=== PATIENT | female | born 1990 | race Caucasian/White ===

== ENCOUNTER 2017-04-14 20:41 | Emergency (ER) | payer OTHER, SELFPAY ==
[2017-04-14 20:48] VITALS: BP 124/112; PULSE 110; RESP 18; TEMP 36.9; O2SAT 98; BMI 29.2
--- NOTE | 2017-04-14 21:04 | CT_ITS ---
CT abdomen pelvis wo con CLINICAL INDICATION: Nausea and abdominal pain, lower abdominal pain ITS.REASON: abdominal pain ORDERING PHYSICIAN: Fortunato García MD PATIENT AGE: 26 years COMPARISON: None TECHNIQUE: Axial images obtained with sagittal and coronal reformats. PROCEDURE: Oral Contrast: None IV Contrast: None . FINDINGS: Lung bases are clear. The liver, spleen, adrenal glands, pancreas, gallbladder, kidneys, urinary bladder and ureters have an unremarkable unenhanced CT appearance. No intestinal obstruction or free air. No focal inflammatory change. The appendix is upper normal in caliber but there is no stranding of the periappendiceal fat. If symptoms persists, consider follow-up with IV contrast. No evidence of diverticulitis. No pelvic mass or focal inflammatory change. There are small amount fluid in the cul-de-sac. No acute bony findings. IMPRESSION: 1. No definite acute abdominal or pelvic findings. 2. The appendix is upper normal in size but no evidence of appendicitis. If symptoms warrant, repeat exam with IV contrast may be of further value. 3. Small amount fluid in the pelvis nonspecific
--- NOTE | 2017-04-14 21:09 | HMH.EDUROGF ---
ED Disposition Clinical Impression: Pelvic pain Disposition: Home, Self-Care Condition on Discharge: Good Instructions: DI for Pelvic Pain Additional Instructions: call dr infante in am - Critical Care Critical Care Time: No Attestation: On 04/14/17, the high probability of a clinically significant, sudden or life threatening deterioration of the following system(s) required my full and direct attention, intervention and personal management. The time I documented below is in addition to time spent performing reported procedures but includes the following listed in this critical care notation. Medical Decision Making - Medical Records Medical records reviewed: Yes: I reviewed the patient's medical records. Vital Signs: 04/14/17 20:48 Temperature 98.5 F Temperature Source Oral Pulse Rate [Right Radial] 110 H Respiratory Rate 18 Blood Pressure [Right Arm] 124/112 Blood Pressure Mean [Right Arm] 116 02 Sat by Pulse Oximetry 98 Oxygen Delivery Method Room Air - Lab Data Lab results reviewed: Yes: I reviewed the patient's lab results. Lab Results 04/14/17 21:10: WBC 12.6 H, RBC 4.69, Hgb 14.0, Hct 41.9, MCV 89.4, MCH 29.8, MCHC 33.4, RDW 13.0, Plt Count 395, MPV 8.0, Neut % (Auto) 63.9, Lymph % (Auto) 26.8, [place] % (Auto) 6.7, Eos % (Auto) 2.1, Baso % (Auto) 0.6, Neut # (Auto) 8.0 H, Lymph # (Auto) 3.4, [place] # (Auto) 0.9, Eos # (Auto) 0.3, Baso # (Auto) 0.1 04/14/17 21:10: Urine HCG, Qual Negative 04/14/17 21:10: Sodium 141, Potassium 4.0, Chloride 103, Carbon Dioxide 28, Anion Gap 14.0, BUN 10, Creatinine 0.84, Estimated Creat Clear 122, Estimated GFR 83, Est GFR ( Amer) 101, Glucose 94, Calcium 8.9, Total Bilirubin 0.2, AST 27, ALT 58, Alkaline Phosphatase 136 H, Total Protein 8.6 H, Albumin 4.4, Globulin 4.2 H, Albumin/Globulin Ratio 1.0 L, Amylase 65, Lipase 234 Result diagrams: 04/14/17 21:10 04/14/17 21:10 Orders (Tests/Meds): ED MEDICATIONS Discontinued Medications Generic Name Dose Route Start Last Admin Trade Name [place] PRN Reason Stop Dose Admin Sodium Chloride 1,000 mls @ 999 mls/hr 04/14/17 21:00 04/14/17 21:45 Sod Chlor 0.9% 1000ml Bag IV 04/14/17 22:00 999 mls/hr .Q1H1M XU Administration Ketorolac Tromethamine 30 mg 04/14/17 21:38 04/14/17 21:44 Toradol 30mg/Ml Vial IV 04/14/17 21:39 30 mg ONCE ONE Administration Ondansetron HCl 4 mg 04/14/17 21:38 04/14/17 21:45 Zofran 4mg/2ml Vial IV 04/14/17 21:39 4 mg ONCE ONE Administration ORDERS Category Date Time Status CT abdomen pelvis wo con Stat Cat Scan 04/14/17 21:04 Taken - CT Data CT Scan: Abdomen, Pelvis Time Received: 22:[address] Reviewed: Yes: I have viewed the radiologist's interpretation Preliminary Findings: Normal/NAD - Puneet Inquiry Pt receiving controlled substance: No Female Urogenital HPI - General Chief complaint: Abdominal Pain Stated complaint: Has Implant; Pass Blood Clot Time Seen by Provider: 04/14/17 21:00 Mode of Arrival: Ambulatory Limitations: No Limitations Description of Symptoms (Recalled from ER Triage Doc. by RN): Pt reports she had a nexplanon inserted in her left arm on 03/23/20. pt. reports last abdmonial pain, nausea, and chills. Pt reports she she passed a large clot that looks like flesh. - History of Present Illness HPI Narrative: pelvic pain with abn vag bleeding and passed clot and tissue tonight Complaint: vaginal bleeding, pelvic pain Onset (ago): day(s) Location: suprapubic Severity: moderate Quality: sharp : no - Related Data Home Medications Medication Instructions Recorded Confirmed etonogestrel 68 mg subdermal 1 implant SUBDERMAL ONCE 03/23/17 04/14/17 implant Allergies Allergy/AdvReac Type Severity Reaction Status Date / Time No Known Allergies Allergy Verified 04/14/17 20:57 [facility] History I have reviewed the patient's past medical history: Yes Other Surgeries: Yes: No Previou
[2017-04-14 21:23] LABS: Urine Pregnancy, HCG Qual. Negative (Negative)
[2017-04-14 21:26] LABS: Basophils # 0.1 K/mm3 (0-0.2); Basophils % 0.6 % (0.1-2.0); Eosinophils # 0.3 K/mm3 (0.0-0.4); Eosinophils % 2.1 % (0.1-12.0); Hematocrit 41.9 % (37.0-47.0); Lymphocytes # 3.4 K/mm3 (0.7-4.5); Lymphocytes % 26.8 K/mm3 (10-50); Mean Corpuscular HGB Conc 33.4 g/dL (31.8-35.4); Mean Corpuscular Hemoglobin 29.8 pg (27.0-31.2); Mean Corpuscular Volume 89.4 fl (81-99); Monocytes # 0.9 K/mm3 (0.1-1.0); Monocytes % 6.7 % (1.7-9.3); Neutrophils % 63.9 % (37.0-80.0); Platelet Count 395 K/mm3 (142-424); Red Blood Count 4.69 M/mm3 (4.20-5.40); White Blood Count 12.6 K/mm3 (4.8-10.8)
[2017-04-14 21:33] LABS: Alanine Aminotransferase 58 U/L (12-78); Albumin Level 4.4 gm/dL (3.4-5.0); Alkaline Phosphatase 136 U/L (46-116); Amylase 65 U/L (25-125); Aspartate Amino Transferase 27 U/L (15-37); Bilirubin,Total 0.2 mg/dL (0.2-1.0); Blood Urea Nitrogen 10 mg/dL (7-18); Calcium 8.9 mg/dL (8.5-10.1); Carbon Dioxide 28 mmol/L (21.0-32.0); Chloride 103 mmol/L (98-107); Creatinine Clearance Estimated 122 mL/min (0-300); Creatinine,Serum 0.84 mg/dL (0.55-1.02); Estimated Glomerular Filt Rate 83 ml/min (>60); GFR (African American) 101 ML/MIN (>60); Globulin 4.2 gm/dl (1.3-3.2); Glucose 94 mg/dL (74-106); Lipase 234 u/L (73-393); Sodium 141 mmol/L (136-145); Total Protein,Serum 8.6 gm/dL (6.4-8.2)
--- NOTE | 2017-04-14 21:35 | PC.NURSE ---
At bedside with Liya Patel MS4 during pelvic exam
[2017-04-14 23:10] VITALS: BP 120/68; PULSE 72; RESP 18; TEMP 36.8; O2SAT 99
== END 2017-04-14 23:10 | disposition home or self-care (01) ==
PROVIDERS: Emergency Provider Emergency Medicine
DX: R10.2 Pelvic and perineal pain (principal)
CPT/HCPCS: 74176; 80053; 81025; 82150; 83690; 85025; 96365; 96374; 96375; 99283; J2405

== ENCOUNTER → 2017-08-23 15:38 | Outpatient (CLI) | payer OTHER, SELFPAY ==
[2017-08-25 09:23] LABS: HIV Screen 4th Generation wRfx Non Reactive (Non Reactive)
[2017-08-26 02:33] LABS: Hepatitis C Antibody <0.1 s/co ratio (0.0-0.9); Rapid Plasma Reagin Ab Titer Non Reactive (NonRea<1:1)
== END ==
PROVIDERS: Visit Provider Obstetrics & Gynecology
DX: Z11.3 Encounter for screening for infections with a predominantly sexual mode of transmission (principal)
CPT/HCPCS: 36415; 86592; 86703; 87380; G0432

== ENCOUNTER → 2018-11-15 14:25 | Outpatient (CLI) | payer OTHER, SELFPAY ==
[2018-11-15 14:52] LABS: Amphetamine/Metha Screen,Urine Negative ng/mL (<1000); Barbiturates Screen,Urine Negative ng/mL (<200); Benzodiazepines Screen,Urine Positive ng/mL (<200); Cannabinoid Screen,Urine Negative ng/mL (<50); Cocaine Screen,Urine Negative ng/mL (<300); Methadone Screen,Urine Negative ng/mL (<300); Opiate Screen,Urine Negative ng/mL (<300); Phencyclidine Screen,Urine Negative ng/mL (<25)
== END ==
PROVIDERS: Visit Provider Emergency Medicine
DX: N39.0 Urinary tract infection, site not specified (principal); F41.9 Anxiety disorder, unspecified
CPT/HCPCS: 80305; 87086

== ENCOUNTER 2019-12-27 19:44 | Emergency (ER) | payer OTHER, SELFPAY ==
[2019-12-27 19:44] VITALS: BP 129/89; PULSE 99; RESP 16; TEMP 37.4; O2SAT 100; BMI 28.3
--- NOTE | 2019-12-27 20:23 | HMH.EDUTC ---
[facility] [place] Clinical Impression: Exposure to COVID-19 virus, Viral syndrome Disposition: Home, Self-Care Condition on Discharge: Good Instructions: Preventing the Spread of Coronavirus Discharge Instructions Additional Instructions: Drink plenty of fluids. Take tylenol or ibuprofen for pain or fever. Take the medications as directed. Follow up with your regular doctor. GO TO THE ER FOR ANY WORSENING SYMPTOMS FOLLOW THE DIRECTIONS ON THE COVID-19 HAND OUT THAT WE GAVE YOU REGARDING SELF-ISOLATION UNTIL YOU KNOW YOUR COVID-19 RESULTS Prescriptions: Albuterol Sulfate [Albuterol Sulfate Hfa] 2 puffs IH Q6HP PRN 30 Days #1 hfa.aer.ad PRN Reason: Shortness Of Breath Transmission Status: Pending to [facility] Brompheniramine/Pseudoephed/Dm [Bromfed Dm Cough Syrup] 5 ml PO Q6HP PRN #240 syrup PRN Reason: Cough Transmission Status: Pending to [facility] Azithromycin [Z-Cole 250mg Tab*] 250 mg PO UD DOSE PK #6 tab Transmission Status: Pending to [facility] Referrals: Fortunato García MD [Primary Care Provider] - Forms: Work/School Release Time of Disposition: 20:34 Medical Decision Making - Medical Records Medical records reviewed: No: I reviewed the patient's medical records. - Puneet Inquiry Pt receiving controlled substance: No Vital Signs: 12/27/19 19:44 12/27/19 20:26 Temperature 99.3 F 99.0 F Temperature Source Oral Oral Pulse Rate [Left Radial] 99 H 103 H Respiratory Rate 16 14 Blood Pressure [Left Arm] 129/89 126/93 H Blood Pressure Mean [Left Arm] 102 104 Blood Pressure Source [Left Arm] Automatic Cuff Automatic Cuff Blood Pressure Position [Left Arm] Supine Sitting 02 Sat by Pulse Oximetry 100 100 Oxygen Delivery Method Room Air Room Air Orders (Tests/Meds): ORDERS Category Date Time Status Covid-19 Nasal PCR ([facility]) Routine Lab 12/27/19 20:23 Ordered [facility] [place]PI - General Stated complaint: Sore throat, Cough Time Seen by Provider: 12/27/19 20:23 Mode of Arrival: Ambulatory Source of Information: Patient Limitations: No Limitations Description of Symptoms (Recalled from Triage Doc. by RN): Pt decribes sore throat and subjective fevers for 3 days. - History of Present Illness Provider Complaint: She c/o 2 days of body aches, sore throat, runny nose and feeling bad. 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 - Related Data Home Medications Medication Instructions Recorded Confirmed etonogestrel 68 mg subdermal 1 implant SUBDERMAL ONCE 03/23/17 12/10/19 implant Previous Rx's Medication Instructions Recorded Albuterol Sulfate [Albuterol 2 puffs IH Q6HP PRN 30 Days #1 12/27/19 Sulfate Hfa] hfa.aer.ad Azithromycin [Z-Cole 250mg Tab*] 250 mg PO UD DOSE PK #6 tab 12/27/19 Brompheniramine/Pseudoephed/Dm 5 ml PO Q6HP PRN #240 syrup 12/27/19 [Bromfed Dm Cough Syrup] Allergies Allergy/AdvReac Type Severity Reaction Status Date / Time naloxone [From Suboxone] AdvReac Unknown N/V, Abd Verified 12/10/19 15:06 Pain, Dizzy, Itching [facility] History - Hepatitis A Screen Attestation statement:: This patient has been screened for Hepatitis A risk factors. I have reviewed the patient's past medical history: Yes Medical History: Reports:: Anxiety, Depression Denies:: Cancer, Chronic Obstructive Pulmonary Disease (COPD), Diabetes Mellitus Type 1, Diabetes Mellitus Type 2, Hypertension, MRSA Other Surgeries: Yes: No Previous Surgery Amputation: No Fractures: No - Social History Smoking Status: Never smoker Alcohol Intake: current Alcohol Intake Frequency:: holidays/special occasions only Substance Use Type: denies use Occupational Status: employed Housing: apartment Household Members: significant other - Psychiatric History Pschychiatric History:: Reports:: Anxiety, Depression Family Hx:: Diabetes, Coronary
[2019-12-27 20:26] VITALS: BP 126/93; PULSE 103; RESP 14; TEMP 37.2; O2SAT 100; BMI 28.3
[2019-12-27 20:43] VITALS: BP 126/93; PULSE 103; RESP 14; TEMP 37.2; O2SAT 100
== END 2019-12-27 20:44 | disposition home or self-care (01) ==
PROVIDERS: Emergency Provider Nurse Practitioner Family; PCP Emergency Medicine
DX: Z20.828 Contact with and (suspected) exposure to other viral communicable diseases (principal); B34.9 Viral infection, unspecified; F41.8 Other specified anxiety disorders
CPT/HCPCS: 99201; U0003

== ENCOUNTER 2020-08-03 20:36 | Emergency (ER) | payer OTHER, SELFPAY ==
[2020-08-03 20:39] VITALS: BP 131/98; PULSE 96; RESP 16; TEMP 36.6; O2SAT 100; BMI 32.8
[2020-08-03 20:57] LABS: Apearance,Urine Turbid (Clear); Color,Urine Dark Yellow (Yellow)
[2020-08-03 20:58] LABS: Bilirubin,Urine Negative (Negative); Blood, Urine Negative (Negative); Glucose,Urine (UA) Negative (Negative); Ketones,Urine Negative (Negative); Protein,Urine Negative (Negative); UTC Leukocyte Esterase,Urine 1+ (Negative); UTC Nitrate,Urine Negative (Negative); Urobilinogen,Urine 1 EU/dl (0.2)
--- NOTE | 2020-08-03 20:58 | HMH.EDUTC ---
[facility] [place] Disposition Clinical Impression: Dysuria, STD exposure Disposition: Home, Self-Care Condition on Discharge: Good Additional Instructions: Drink plenty of fluids. Take the azithromycin as directed (given here already). We will await the urine results before we treat further. Follow up with your pyrometer operator and your primary care doctor. GO TO THE ER FOR ANY WORSENING SYMPTOMS OR CONCERNS Prescriptions: Azithromycin 500 mg PO ONCE 1 Days #1 tab Transmission Status: [facility] [place] Referrals: Fortunato García MD [Primary Care Provider] - Time of Disposition: 21:01 Medical Decision Making - Medical Records Medical records reviewed: No: I reviewed the patient's medical records. - Puneet Inquiry Pt receiving controlled substance: No Vital Signs: 08/03/20 20:39 Temperature 97.9 F Temperature Source Oral Pulse Rate [Right] 96 H Respiratory Rate 16 Blood Pressure [Right Arm] 131/98 H Blood Pressure Mean [Right Arm] 109 Blood Pressure Source [Right Arm] Automatic Cuff Blood Pressure Position [Right Arm] Sitting 02 Sat by Pulse Oximetry 100 Oxygen Delivery Method Room Air - Lab Data Lab results reviewed: Yes: I reviewed the patient's lab results. Lab Results 08/03/20 20:56: Urine Color Dark yellow, Urine Appearance Turbid, Urine pH 7.0, Ur Specific [place] 1.020, Urine Protein Negative, Urine Glucose (UA) Negative, Urine Ketones Negative, Urine Blood Negative, Urine Nitrate Negative, Urine Bilirubin Negative, Urine Urobilinogen 1, Ur Leukocyte Esterase 1+ A Orders (Tests/Meds): ORDERS Category Date Time Status Urine Culture Stat Micro 08/03/20 21:00 Ordered [facility] HPI - General Stated complaint: pOSSIBLE uti Time Seen by Provider: 08/03/20 20:58 Mode of Arrival: Ambulatory Source of Information: Patient Limitations: No Limitations Description of Symptoms (Recalled from Triage Doc. by RN): pt c/o a yellow snotty vaginal d/c. pts boyfriend has been cheating and she thinks she may have an sti, bv or uti. HEENT Symptoms (Recalled from RN notes): No Resp Symptoms (Recalled from RN notes): No Skin Symptoms (Recalled from RN notes): No MS Symptoms (Recalled from RN notes): No Functional Status (Recalled from RN notes): na - History of Present Illness Provider Complaint: She states that for the past 1 week she has thought she has an std. She has been having whitish vaginal discharge. She is unsure about which std she may have been exposed to. - Related Data Home Medications Medication Instructions Recorded Confirmed etonogestrel 68 mg subdermal 1 implant SUBDERMAL ONCE 03/23/17 12/10/19 implant Previous Rx's Medication Instructions Recorded Albuterol Sulfate [Albuterol 2 puffs IH Q6HP PRN 30 Days #1 12/27/19 Sulfate Hfa] hfa.aer.ad Azithromycin [Z-Cole 250mg Tab*] 250 mg PO UD DOSE PK #6 tab 12/27/19 Brompheniramine/Pseudoephed/Dm 5 ml PO Q6HP PRN #240 syrup 12/27/19 [Bromfed Dm Cough Syrup] Allergies Allergy/AdvReac Type Severity Reaction Status Date / Time naloxone [From Suboxone] AdvReac Unknown N/V, Abd Verified 08/03/20 20:39 Pain, Dizzy, Itching - Worker's Comp Is this a Worker's Comp case?: No [facility] History - Hepatitis A Screen Drug use history?: No High risk sexual behaviors?: No History of sexually transmitted infection?: No Currently employed?: No Childcare worker?: No Do you have indoor plumbing?: Yes Do you have electricity?: Yes Attestation statement:: This patient has been screened for Hepatitis A risk factors. I have reviewed the patient's past medical history: Yes Medical History: Reports:: Anxiety, Depression Denies:: Cancer, Chronic Obstructive Pulmonary Disease (COPD), Diabetes Mellitus Type 1, Diabetes Mellitus Type 2, Hypertension, MRSA Other Surgeries: Yes: No Previous Surgery Amputation: No Fractures: No - Social History Smoking Status: Never smoker Alcohol Intake: never Alc
[2020-08-03 21:07] VITALS: BP 000/00; PULSE 0; RESP 0; TEMP -17.7; TEMP 0
[2020-08-05 18:34] LABS: Neisseria gonorrhoeae, NAA Negative (Negative)
== END 2020-08-03 21:17 | disposition home or self-care (01) ==
PROVIDERS: Emergency Provider Nurse Practitioner Family; PCP Emergency Medicine
DX: R30.0 Dysuria (principal); Z20.2 Contact with and (suspected) exposure to infections with a predominantly sexual mode of transmission; F41.8 Other specified anxiety disorders
CPT/HCPCS: 81003; 87086; 87491; 87591; 99202; G0463

== ENCOUNTER 2020-08-05 22:18 | Emergency (ER) | payer OTHER, SELFPAY ==
[2020-08-05 22:19] VITALS: BP 148/87; PULSE 98; RESP 20; TEMP 36.9; O2SAT 98; BMI 26.5
[2020-08-05 22:36] VITALS: BMI 26.5
[2020-08-05 22:42] LABS: Microscopic, Urine URINE MICROSCOPIC (MICROSCOPIC)
[2020-08-05 22:43] LABS: Appearance,Urine CLEAR (Clear); Bilirubin,Urine Negative (Negative); Blood, Urine Negative (Negative); Color,Urine YELLOW (Yellow); Glucose,Urine (UA) Negative (Negative); Ketones,Urine Negative (Negative); Leukocyte Esterase,Urine 3+ (Negative); Nitrate,Urine Negative (Negative); PH,Urine 7.5 (5.0-8.5); Protein,Urine Negative (Negative); Urobilinogen,Urine 0.2 EU/dl (0.2)
[2020-08-05 22:45] LABS: Urine Pregnancy, HCG Qual. Negative (Negative)
[2020-08-05 23:00] VITALS: BP 126/88; PULSE 101; O2SAT 98
[2020-08-05 23:01] LABS: Basophils # 0.1 K/mm3 (0-0.2); Basophils % 1.1 % (0.1-2.0); Eosinophils # 0.4 K/mm3 (0.0-0.4); Hematocrit 38.1 % (37.0-47.0); Hemoglobin 12.8 g/dL (12.2-16.2); Lymphocytes # 2.9 K/mm3 (0.7-4.5); Lymphocytes % 49.2 % (10-50); Mean Corpuscular HGB Conc 33.7 g/dL (31.8-35.4); Mean Corpuscular Hemoglobin 29.4 pg (27.0-31.2); Mean Corpuscular Volume 87.4 fl (81-99); Mean Platelet Volume 8.5 fl (7.4-10.4); Monocytes # 0.5 K/mm3 (0.1-1.0); Monocytes % 7.7 % (1.7-9.3); Neutrophils # 2.1 K/mm3 (1.8-7.8); Neutrophils % 34.9 % (37.0-80.0); Platelet Count 312 K/mm3 (142-424); Red Blood Count 4.36 M/mm3 (4.20-5.40); Red Cell Distribution Width 13.5 % (11.5-17.5)
[2020-08-05 23:04] LABS: Alanine Aminotransferase 38 U/L (12-78); Albumin Level 4.8 g/dl (3.5-5.0); Albumin/Globulin Ratio 1.5 (1.1-1.8); Alkaline Phosphatase 146 U/L (38-126); Amylase 82 U/L (30-110); Aspartate Amino Transferase 47 U/L (14-36); Bilirubin,Total 0.6 mg/dl (0.2-1.3); Blood Urea Nitrogen 10 mg/dl (7-17); Calcium 9.4 mg/dl (8.4-10.2); Carbon Dioxide 27 mmol/L (22.0-30.0); Chloride 104 mmol/L (98-107); Creatinine Clearance Estimated 151 mL/min (50-200); Estimated Glomerular Filt Rate 120 ml/min (>60); GFR (African American) 145 ML/MIN (>60); Globulin 3.1 g/dL (1.3-3.2); Glucose 93 mg/dl (74-100); Lipase 93 U/L (23-300); Sodium 138 mmol/L (136-145); Total Protein,Serum 7.9 g/dl (6.3-8.2)
--- NOTE | 2020-08-05 23:08 | CT_ITS ---
PROCEDURE INFORMATION: Exam: CT Abdomen And Pelvis With Contrast Exam date and time: 08/05/2020 11:08 PM Age: 29 years old Clinical indication: Abdominal pain; Patient HX: Epigastric mid line pain and nausea; Additional info: Abd pain TECHNIQUE: Imaging protocol: Computed tomography of the abdomen and pelvis with contrast. Radiation optimization: All CT scans at this facility use at least one of these dose optimization techniques: automated exposure control; mA and/or kV adjustment per patient size (includes targeted exams where dose is matched to clinical indication); or iterative reconstruction. Contrast material: ISOVUE; Contrast volume: 75 ml; Contrast route: IV; COMPARISON: ABDPELW CT abdomen pelvis w con 06/13/2018 10:20 PM FINDINGS: Lungs: The visualized lung bases are clear. Pleural spaces: There are no pleural effusions. Heart: The visualized portions of the heart are unremarkable. There is no evidence of pericardial fluid collections. Liver: There is diffuse decrease in hepatic parenchymal density consistent with fatty infiltration. Gallbladder and bile ducts: The gallbladder is incompletely distended, but as seen, appears within range of normal.There is common bile duct dilatation measuring approximately 11 mm in maximum distension. Pancreas: The pancreas is normal. Spleen: The spleen is normal. Adrenal glands: The adrenal glands are normal. Kidneys and ureters: There are a few small left renal hypodensities that cannot be further characterized on the current examination. Statistically, these are likely cysts. The kidneys are otherwise normal. Stomach and bowel: The stomach is included cleat distended, but as seen, appears within range of normal. The duodenum is unremarkable. There is mildly excessive colonic stool content, most prominent in the right colon which measures 6.4 cm in transverse dimension. Unopacified loops of small bowel within range of normal. Appendix: A normal appendix is identified. Intraperitoneal space: No evidence of intraperitoneal free air. There is a trace amount of free fluid in the rightward pelvis. No significant free fluid. Vasculature: No abdominal aortic aneurysm. Lymph nodes: No enlarged lymph nodes. Urinary bladder: Unremarkable as visualized. Reproductive: The right ovary is normal. There is a somewhat crenulated left ovarian cyst measuring 3.0 x 2.1 by 3.3 cm, with mild peripheral enhancement. The uterus is overall within range of normal. Bones/joints: No acute fracture. Soft tissues: There is a tiny fat-containing umbilical hernia. IMPRESSION: 1. Common bile duct dilatation measuring approximately 11 mm. Recommend right upper quadrant ultrasound for further evaluation. 2. Mildly crenulated left ovarian cyst measuring 3.0 x 2.1 x 3.3 cm. Most likely this reflects an evolving corpus luteal/functional cyst. Correlate with beta HCG levels to exclude the possibility of ectopic . 3. Fatty hepatic infiltration. 4. Mild constipation. 5. Tiny fat- containing umbilical hernia. 6. Trace amount of free fluid within the rightward pelvis.
[2020-08-05 23:09] LABS: Bacteria,Urine 1+ /lpf; Mucus,Urine 1+ /lpf
--- NOTE | 2020-08-05 23:20 | HMH.EDNVD ---
ED Disposition Clinical Impression: Abdominal pain Qualifiers: Abdominal location: right lower quadrant Qualified Code(s): R10.31 - Right lower quadrant pain UTI (urinary tract infection) Qualifiers: Urinary tract infection type: site unspecified Hematuria presence: without hematuria Qualified Code(s): N39.0 - Urinary tract infection, site not specified Vaginitis Qualifiers: Chronicity: acute Qualified Code(s): N76.0 - Acute vaginitis Disposition: Home, Self-Care Condition on Discharge: Good Instructions: DI for Acute Abdominal Pain Additional Instructions: fluids and see pcp next week and use meds Prescriptions: metroNIDAZOLE [Flagyl 500mg Tablet] 500 mg PO Q8H #21 tab Transmission Status: Pending to [facility] levoFLOXacin [Levaquin 500mg tab] 500 mg PO DAILY #7 tab Transmission Status: Pending to [facility] Ketorolac Tromethamine [Toradol 10mg tablet] 10 mg PO Q6HP PRN #10 tab MDD 40mg/day PRN Reason: Moderate To Severe Pain Transmission Status: Pending to [facility] Referrals: Fortunato García MD [Primary Care Provider] - - Critical Care Critical Care Time: No Attestation: On 08/05/20, the high probability of a clinically significant, sudden or life threatening deterioration of the following system(s) required my full and direct attention, intervention and personal management. The time I documented below is in addition to time spent performing reported procedures but includes the following listed in this critical care notation. Medical Decision Making - Medical Records Medical records reviewed: Yes: I reviewed the patient's medical records. - Puneet Inquiry Pt receiving controlled substance: No Puneet was queried for this patient: No Vital Signs: 08/05/20 22:19 08/05/20 23:00 08/05/20 23:54 Temperature 98.5 F Temperature Source Oral Pulse Rate 101 H 87 Pulse Rate [Right] 98 H Respiratory Rate 20 Blood Pressure 126/88 117/75 Blood Pressure [Right Arm] 148/87 H Blood Pressure Mean 100 Blood Pressure Mean [Right Arm] 107 02 Sat by Pulse Oximetry 98 98 100 Oxygen Delivery Method Room Air Room Air 08/05/20 23:57 08/06/20 00:00 08/06/20 00:30 Temperature 98.1 F Temperature Source Oral Pulse Rate 85 96 H Pulse Rate [Right] Respiratory Rate Blood Pressure 134/91 H 135/93 H Blood Pressure [Right Arm] Blood Pressure Mean Blood Pressure Mean [Right Arm] 02 Sat by Pulse Oximetry 99 98 Oxygen Delivery Method - Lab Data Lab results reviewed: Yes: I reviewed the patient's lab results. Lab Results 08/05/20 22:30: Urine Color Yellow, Urine Appearance Clear, Urine pH 7.5, Ur Specific [place] 1.020, Urine Protein Negative, Urine Glucose (UA) Negative, Urine Ketones Negative, Urine Blood Negative, Urine Nitrate Negative, Urine Bilirubin Negative, Urine Urobilinogen 0.2, Ur Leukocyte Esterase 3+ A, Urine WBC 5-10, Ur Squamous Epith Cells 3-5, Urine Bacteria 1+, Urine Mucus 1+ 08/05/20 22:30: Urine HCG, Qual Negative 08/05/20 22:45: WBC 6.0, RBC 4.36, Hgb 12.8, Hct 38.1, MCV 87.4, MCH 29.4, MCHC 33.7, RDW 13.5, Plt Count 312, MPV 8.5, Neut % (Auto) 34.9 L, Lymph % (Auto) 49.2, [place] % (Auto) 7.7, Eos % (Auto) 7.0, Baso % (Auto) 1.1, Neut # (Auto) 2.1, Lymph # (Auto) 2.9, [place] # (Auto) 0.5, Eos # (Auto) 0.4, Baso # (Auto) 0.1, ESR 27 H 08/05/20 22:45: Sodium 138, Potassium 4.0, Chloride 104, Carbon Dioxide 27, Anion Gap 11.0, BUN 10, Creatinine 0.60, Estimated Creat Clear 151, Estimated GFR 120, Est GFR ( Amer) 145, Glucose 93, Calcium 9.4, Total Bilirubin 0.6, AST 47 H, ALT 38, Alkaline Phosphatase 146 H, C-Reactive Protein 5.0 H, Total Protein 7.9, Albumin 4.8, Globulin 3.1, Albumin/Globulin Ratio 1.5, Amylase 82, Lipase 93, Procalcitonin < 0.030 08/05/20 22:45: HCG, Quant < 2 Result diagrams: 08/05/20 22:45 08/05/20 22:45 Orders (Tests/Meds): ED MEDICATIONS Generic Name Dose Route Start Last Admin
[2020-08-05 23:27] LABS: Procalcitonin < 0.030 ng/mL (0.0-2.0)
[2020-08-05 23:35] LABS: Erythrocyte Sedimentation Rate 27 mm/hr (0-20)
[2020-08-05 23:54] VITALS: BP 117/75; PULSE 87; O2SAT 100
[2020-08-05 23:57] VITALS: TEMP 36.7
[2020-08-06] VITALS: BP 134/91; PULSE 85; O2SAT 99
[2020-08-06 00:30] VITALS: BP 135/93; PULSE 96; O2SAT 98
--- NOTE | 2020-08-06 00:56 | PC.NURSE ---
at bedside performing vaginal exam with witness andrey berkowitz and caprice otero. specimens obtained for gc/chlamydia and wet prep per request and sent to lab
[2020-08-06 01:45] LABS: HCG,Quantitative < 2 mIU/ml (0-5.42)
[2020-08-06 01:50] VITALS: BP 122/78; PULSE 95; RESP 16; TEMP 36.8; O2SAT 99
[2020-08-09 16:43] LABS: Neisseria gonorrhoeae, NAA Negative (Negative)
== END 2020-08-06 02:03 | disposition home or self-care (01) ==
PROVIDERS: Emergency Provider Emergency Medicine; PCP Emergency Medicine
DX: N76.0 Acute vaginitis (principal); N39.0 Urinary tract infection, site not specified; F41.8 Other specified anxiety disorders
CPT/HCPCS: 74177; 80053; 81001; 81025; 82150; 83690; 84145; 84702; 85025; 85651; 86140; 87086; 87210; 87491; 87591; 96365; 96375; 99283; J2405; Q9967

== ENCOUNTER 2022-11-15 19:07 | Emergency (ER) | payer OTHER, SELFPAY ==
[2022-11-15 19:15] VITALS: BP 113/74; PULSE 110; RESP 18; TEMP 36.7; O2SAT 96; BMI 23.9
--- NOTE | 2022-11-15 19:20 | XR_ITS ---
PROCEDURE INFORMATION: Exam: XR Right Hand Exam date and time: 11/15/2022 7:40 PM Age: 31 years old Clinical indication: Injury or trauma; Other: Bite; Arm, lower; Right; Patient HX: Abrasions to humerus, forearm; Additional info: Dog bite TECHNIQUE: Imaging protocol: Radiologic exam of the right hand. Views: 3 or more views. COMPARISON: CR FARMRT XR forearm RT 2V 06/13/2018 10:24 PM FINDINGS: Bones/joints: Incidental proximal scaphoid bone island. No fracture or dislocation. Soft tissues: Normal. IMPRESSION: No acute findings.
--- NOTE | 2022-11-15 19:20 | XR_ITS ---
PROCEDURE INFORMATION: Exam: XR Right Elbow Exam date and time: 11/15/2022 7:46 PM Age: 31 years old Clinical indication: Injury or trauma; Other: Dog bite; Elbow; Right; Patient HX: Bite to distal forearm, abrasions noted TECHNIQUE: Imaging protocol: Radiologic exam of the right elbow. Views: 3 or more views. COMPARISON: CR XR FOREARM RT 2V 11/15/2022 7:44 PM FINDINGS: Bones/joints: Normal. Soft tissues: Normal. IMPRESSION: No acute findings.
--- NOTE | 2022-11-15 19:20 | XR_ITS ---
PROCEDURE INFORMATION: Exam: XR Right Humerus Exam date and time: 11/15/2022 7:50 PM Age: 31 years old Clinical indication: Injury or trauma; Other: Bite; Arm, lower; Right; Patient HX: Abrasions to humerus, forearm; Additional info: Dog bite TECHNIQUE: Imaging protocol: Radiologic exam of the right humerus. Views: 2 or more views. COMPARISON: CR XR ELBOW RT MIN 3V 11/15/2022 7:46 PM FINDINGS: Bones/joints: Normal. Soft tissues: Normal. IMPRESSION: No acute findings.
--- NOTE | 2022-11-15 19:20 | XR_ITS ---
PROCEDURE INFORMATION: Exam: XR Right Forearm Exam date and time: 11/15/2022 7:44 PM Age: 31 years old Clinical indication: Injury or trauma; Other: Bite; Arm, lower; Right; Patient HX: Abrasions to humerus, forearm; Additional info: Dog bite TECHNIQUE: Imaging protocol: Radiologic exam of the right forearm. Views: 2 views. COMPARISON: CR FARMRT XR forearm RT 2V 06/13/2018 10:24 PM FINDINGS: Bones/joints: Normal. Soft tissues: Normal. IMPRESSION: No acute findings.
--- NOTE | 2022-11-15 19:20 | XR_ITS ---
PROCEDURE INFORMATION: Exam: XR Right Wrist Exam date and time: 11/15/2022 7:42 PM Age: 31 years old Clinical indication: Injury or trauma; Other: Bite; Arm, lower; Right; Patient HX: Abrasions to humerus, forearm; Additional info: Dog bite TECHNIQUE: Imaging protocol: Radiologic exam of the right wrist. Views: 3 or more views. COMPARISON: CR XR HAND RT MIN 3V 11/15/2022 7:40 PM FINDINGS: Bones/joints: Normal. Soft tissues: Normal. IMPRESSION: No acute findings.
--- NOTE | 2022-11-15 19:28 | EXP.UTC ---
Discharge Plan Disposition Patient Disposition: Home, Self-Care Condition: Good Prescriptions Prescriptions: New mupirocin 2 % ointment 1 applic topical TID 7 Days Qty: 15 0RF amoxicillin-pot clavulanate 875-125 mg Tablet 1 tab PO Q12H Qty: 20 0RF No Action etonogestrel [Nexplanon] 68 mg implant 1 implant SUBDERMAL ONCE albuterol sulfate 8.5 GM HFA aerosol inhaler 2 puffs IH Q6HP PRN (Reason: Shortness Of Breath) 30 Days Qty: 1 5RF azithromycin 250 MG tablet 250 mg PO UD DOSE PK Rx Instructions: Take two (2) tablets today, then one (1) tablet days #2 thru #5 alprazolam 1 MG tablet 1 mg PO Q8HP PRN (Reason: Anxiety) dextroamphetamine-amphetamine 20 MG tablet 10 mg PO TID Patient Comments: Take 1/2 tablet by mouth three times a day mirtazapine 15 MG tablet 15 mg PO HS Patient Comments: Take 1 tablet By Mouth every night levofloxacin 500 MG tablet 500 mg PO DAILY Qty: 7 0RF ketorolac 10 MG tablet 10 mg PO Q6HP MDD 40mg/day PRN (Reason: Moderate To Severe Pain) Qty: 10 0RF Rx Instructions: Therapy initiated with IV/IM dose metronidazole 500 MG tablet 500 mg PO Q8H Qty: 21 0RF Referrals Follow up/Referrals: Fortunato García MD [Primary Care Provider] - See instructions Activity Restrictions/Add. Instructions Additional Instructions/Restrictions: Keep the wounds clean and dry. Take the antibiotics as directed and apply the topical antibiotics as directed. Make sure you stay in contact with the health department regarding the health of the dog. Watch the wounds for signs of worsening infection, such as worsening redness, drainage, swelling, etc. Keep a dressing on it if you are going to be getting it dirty. Take tylenol or ibuprofen for pain. Follow up with your regular doctor. Return in 10 days to have the sutures removed. GO TO THE ER FOR ANY WORSENING SYMPTOMS OR CONCERNS. Clinical Impressions Clinical Impression: Dog bite of right arm, Laceration of right forearm, Need for Tdap vaccination Stand Alone Forms Stand Alone Forms: Work/School Release Instructions Patient Instructions: DI for Laceration Repair -- Simple, Tetanus, Diphtheria, Pertussis (Tdap) Vaccine, DI for Dog Bite Discharge ED Provider: Ramón Portillo [facility] [place] HPI General Stated complaint: AO 11-15 Dog bite right arm Time Seen by Provider: 11/15/22 19:28 History of Present Illness Provider Complaint: She states that she was bit by her neighbors dog about 30 minutes area captain. She states that she was bit multiple times on her right arm. She has a laceration on her right forearm. Her tetanus immunization is not up to date. Related Data Home Medications Medication Instructions Recorded Confirmed etonogestrel 68 mg subdermal 1 implant subdermal ONCE 03/23/17 08/05/20 implant (Nexplanon) control alprazolam 1 mg tablet 1 mg PO Q8HP PRN Anxiety 08/05/20 08/05/20 azithromycin 250 mg tablet 250 mg PO UD DOSE PK uti 08/05/20 08/05/20 dextroamphetamine-amphetamine 20 10 mg PO TID add 08/05/20 08/05/20 mg tablet mirtazapine 15 mg tablet 15 mg PO HS sleep 08/05/20 08/05/20 Previous Rx's Medication Instructions Recorded albuterol sulfate 90 mcg/actuation 2 puffs IH Q6HP PRN Shortness Of 12/27/19 aerosol inhaler Breath 30 days ##1 ketorolac 10 mg tablet 10 mg PO Q6HP PRN Moderate To 08/06/20 Severe Pain #10 tabs levofloxacin 500 mg tablet 500 mg PO DAILY #7 tabs 08/06/20 metronidazole 500 mg tablet 500 mg PO Q8H #21 tabs 08/06/20 amoxicillin 875 mg-potassium 1 tab PO Q12H #20 tabs 11/15/22 clavulanate 125 mg tablet mupirocin 2 % topical ointment 1 applic topical TID 7 days #15 11/15/22 grams Allergies Allergy/AdvReac Type Severity Reaction Status Date / Time naloxone [From Suboxone] AdvReac Unknown N/V, Abd Verified 11/15/22 19:47 Pain, Dizzy, Itching [facility] Disclaimer: The information
[2022-11-15 21:05] VITALS: BP 113/74; PULSE 110; RESP 18; TEMP 36.7; O2SAT 96
== END 2022-11-15 21:05 | disposition home or self-care (01) ==
PROVIDERS: Emergency Provider Nurse Practitioner Family; PCP Emergency Medicine
DX: S51.851A Open bite of right forearm, initial encounter (principal); S51.811A Laceration without foreign body of right forearm, initial encounter; W54.0XXA Bitten by dog, initial encounter; Z23 Encounter for immunization
CPT/HCPCS: 12001; 73060; 73080; 73090; 73110; 73130; 90715; 96372; 99213; 99214; G0463